=== PATIENT | female | born 1990 | race Caucasian/White ===

== ENCOUNTER 2019-09-01 23:53 | Emergency (ER) | payer OTHER ==
[~2019-09-01] VITALS: Ht 149.9 cm; Wt 93.4 kg
[~2019-09-01 23:53] MED LIST: ARMOUR THYROID15 M1 PO; MACROBID 100 M100 M1 PO; TRINATE TABLET1 TAB PO; TYLENOL325 MG PO
[2019-09-02] MEDS ORDERED: FLEXERIL PO (00:16)
[2019-09-02] MEDS ORDERED: WELLBUTRIN XL300 MG PO (00:16)
[2019-09-02] MEDS ORDERED: DICLOFENAC PO (00:21)
[2019-09-02 00:33] LABS: ABSOLUTE BASOPHILS 0.1 thou/uL (0.0-0.2); ABSOLUTE EOSINOPHILS 0.1 thou/uL (0.0-0.7); ABSOLUTE LYMPHOCYTES 2.9 thou/uL (0.8-5.3); ABSOLUTE MONOCYTES 0.7 thou/uL (0.0-1.2); ABSOLUTE NEUTROPHILS 4.5 thou/uL (1.6-8.1); BASOPHILS 0.6 %; EOSINOPHILS 1.5 %; HEMOGLOBIN 13.2 gm/dL (12.0-15.0); MCH 28.8 pg (26.0-34.0); MCHC 34.9 g/dL (28.0-37.0); MCV 82.8 fL (80.0-100.0); MPV 7.7 fl. (7.2-11.1); NUCLEATED RBCS 0 /100WBC; PLATELET COUNT* 306 thou/uL (150-400); POLYS 54.9 %; RBC 4.59 mil/uL (4.20-5.00); RDW-CV 12.7 % (10.5-14.5); WBC 8.2 thou/uL (4.0-11.0)
[2019-09-02 00:39] LABS: URINE BILIRUBIN NEGATIVE (Negative); URINE BLOOD TRACE (Negative); URINE CLARITY CLEAR; URINE COLOR YELLOW; URINE GLUCOSE-RANDOM NEGATIVE (Negative); URINE KETONES 1+ (Negative); URINE NITRITE-REFLEX NEGATIVE (Negative); URINE PROTEIN NEGATIVE (Negative); URINE SPECIFIC GRAVITY <= 1.005 (1.005-1.030); URINE UROBILINOGEN 0.2 E.U./dl (0.2-1.0)
[2019-09-02 00:42] LABS: CALCIUM 8.7 mg/dL (8.5-10.1); CREATININE 1.1 mg/dL (0.6-1.3); POTASSIUM 3.6 mmol/L (3.5-5.1)
[2019-09-02 00:42] LABS: URINE LEUKOCYTES-REFLEX 3+ (Negative)
[2019-09-02 00:46] LABS: ALBUMIN 3.8 g/dL (3.4-5.0); INFLUENZA A ANTIGEN Negative (Negative); INFLUENZA B ANTIGEN Negative (Negative); TOTAL BILIRUBIN 0.3 mg/dL (<0.1-1.0); TOTAL PROTEIN 7.6 g/dL (6.4-8.2)
[2019-09-02 00:46] LABS: SQUAMOUS >10 Many /LPF (0-3); URINE WBC-REFLEX >25 Many /HPF (0-5); WBC CLUMPS Few (None Seen)
[2019-09-02 00:47] LABS: BACTERIA-REFLEX >30 Many /HPF (None Seen); CASTS None Seen /LPF (None Seen); CRYSTALS None Seen /LPF (None Seen); MUCUS 0-3 Light strn/LPF (None Seen)
[2019-09-02] MEDS ORDERED: AUGMENTIN 500-1 EACH PO (03:02)
[2019-09-02 03:18] VITALS: BP 122/81
--- NOTE | 2019-09-02 11:46 | EKG ---
[place] [address] ELECTROCARDIOGRAM REPORT Name: ELENO CHAVEZ Room: [facility]#: [id number] Admission: 09/01/19 Attend Phys: Discharge: 09/02/19 Date of : 86 Report #: [id number] THIS REPORT FOR: //name// [facility] ED Test Date: 2019-09-01 Test Time: 23:57:50 Pat Name: ELENO CHAVEZ Department: Room: Gender: F Fire Technician: FROYLAN : 1990 Requested By: Nara Queen Order Number: [id number] Va MD: Candelario Bryan Measurements Intervals [place] Rate: 105 P: 40 SD: 144 QRS: -15 QRSD: 85 T: 65 QT: 310 QTc: 410 Interpretive Statements Sinus tachycardia Atrial premature complex Borderline left axis deviation Minimal ST depression, lateral leads Baseline wander in lead(s) V6 No previous ECG available for comparison Electronically Signed On 09-02-2019 11:45:19 PROFESSIONAL DEVELOPMENT DIRECTOR by Candelario Bryan [email or web address] <ELECTRONICALLY SIGNED> By: Candelario Bryan MD, [facility] 09/02/19 [id number] Candelario Bryan MD, FACC /EPI
== END 2019-09-02 03:18 | disposition home or self-care (01) ==
LOC: M.ERS 23:53
PROVIDERS: Personal Emergency Response Attendant
DX: N39.0 Urinary tract infection, site not specified (principal); R07.89 Other chest pain; F32.9 Major depressive disorder, single episode, unspecified